=== PATIENT | female | born 1990 | race Caucasian/White ===

== ENCOUNTER 2017-11-28 00:58 | Emergency (ER) | payer OTHER ==
[~2017-11-28] VITALS: Ht 170.2 cm; Wt 77.0 kg
[2017-11-28] MEDS ORDERED: ONDANSETRON ODT 4 MG ONE (01:25)
[2017-11-28] MEDS ORDERED: ONDANSETRON ODT 4 MG PO ONE (01:30)
[2017-11-28 01:48] LABS: CULTURE INDICATED? YES; MICROSCOPIC INDICATED
[2017-11-28] MEDS ORDERED: DICYCLOMINE 20 MG TABLET ONE (02:22)
[2017-11-28] MEDS ORDERED: DICYCLOMINE 20 MG TABLET PO ONE (02:30)
[2017-11-28 02:49] LABS: MEAN CORPUSCULAR HEMOGLOBIN 27.6 pg (27.0-34.8); MEAN CORPUSCULAR HGB CONC 33.4 g/dL (32.4-35.8); MEAN CORPUSCULAR VOLUME 82.8 fL (80-100); MEAN PLATELET VOLUME 9.9 fL (7.4-10.4); PLATELET COUNT 218 x10^3/uL (130-400); RED BLOOD COUNT 4.94 x10^6/uL (3.82-5.3); RED CELL DISTRIBUTION WIDTH 12.8 % (9.6-15.2)
[2017-11-28 03:00] LABS: ALANINE AMINOTRANSFERASE 34 U/L (12-78); ALBUMIN 3.9 g/dL (3.4-5.0); ANION GAP 7 mmol/L (5-15); CALCIUM 9.1 mg/dL (8.5-10.1); CHLORIDE 106 mmol/L (98-107); CREATININE 0.87 mg/dL (0.55-1.02)
[2017-11-28 03:05] LABS: ALKALINE PHOSPHATASE 63 U/L (45-117); BILIRUBIN,TOTAL 0.7 mg/dL (0.2-1.0); TOTAL PROTEIN 8.7 g/dL (6.4-8.2)
[2017-11-28 03:12] LABS: MD YES
[2017-11-28 03:14] LABS: <RBC MORPHOLOGY> NORMAL; BAND#(MANUAL) 0.53 x10^3/uL; BANDS%(MANUAL) 5 % (0-7); LYMPH#(MANUAL) 0.53 x10^3/uL (1-3.4); LYMPHS% (MANUAL) 5 % (22-44); MONOS#(MANUAL) 0.11 x10^3/uL (0.3-2.7); MONOS% (MANUAL) 1 % (2-9); SEG#(MANUAL) 9.43 x10^3/uL (1.8-6.8); SEGS% (MANUAL) 89 % (42-75)
[2017-11-28 03:15] LABS: <PLATELET ESTIMATE> ADEQUATE; <PLT MORPHOLOGY> NORMAL PLT MORPH
[2017-11-28] MEDS ORDERED: PROMETHAZINE 25 MG/ML, 1ML ONE (03:48)
[2017-11-28 03:56] VITALS: BP 104/65
[2017-11-28] MEDS ORDERED: PROMETHAZINE 25 MG/ML, 1ML IM ONE (04:00)
== END 2017-11-28 04:00 | disposition home or self-care (01) ==
LOC: ED 03:55
DX: R10.84 Generalized abdominal pain (principal); R11.2 Nausea with vomiting, unspecified; R19.7 Diarrhea, unspecified
CPT/HCPCS: 36415; 80053; 81001; 83690; 84703; 85025; 87086; 96372; 99284; J2550; Q0162